=== PATIENT | female | born 1985 | race Caucasian/White ===

== ENCOUNTER 2016-11-24 22:22 | Emergency (ER) | payer BC ==
[~2016-11-24 22:22] MED LIST: ALBUTEROL17 GM INH; AMOXICILLIN PO; ANUSOL-HC; DARVOCET-N 1001 TAB PO; FLEXERIL PO; LORTAB 10/500 T1 TAB PO; METHADONE PO; ULTRAM PO; VICODIN PO
== END 2016-11-24 23:35 | disposition home or self-care (01) ==
LOC: CED 22:22 → CFTX 22:22
DX: J02.0 Streptococcal pharyngitis (principal); F17.210 Nicotine dependence, cigarettes, uncomplicated
CPT/HCPCS: 87880; 96372; 99283; J0561; J1100